=== PATIENT | male | born 1990 | race Two or more races ===

== ENCOUNTER 2022-07-17 13:33 | Emergency (ER) | payer OTHER ==
[~2022-07-17] VITALS: Ht 175.3 cm; Wt 59.0 kg
[~2022-07-17 13:33] MED LIST: LEVSIN0.125 MG PO; PROTONIX40 MG PO; ZANTAC300 MG PO; ZOFRAN4 MG PO
== END 2022-07-17 18:07 | disposition home or self-care (01) ==
LOC: ER 13:33
DX: J06.9 Acute upper respiratory infection, unspecified (principal); Z20.822 Contact with and (suspected) exposure to COVID-19; Z91.013 Allergy to seafood